=== PATIENT | female | born 1990 | race Two or more races ===

== ENCOUNTER 2018-10-19 17:37 | Observation (INO) | payer BC ==
[~2018-10-19] VITALS: Ht 175.3 cm; Wt 93.0 kg
[2018-10-19] MEDS ORDERED: PNV1TABL76 MT (19:09)
[2018-10-19] MEDS ORDERED: LACTATED RINGERS 1,000 ML IV SCH (19:11)
[2018-10-19 20:05] LABS: CLARITY URINE CLEAR (CLEAR); COLOR URINE YELLOW (YELLOW); KETONES URINE TRACE (NEGATIVE); LEUKOCYTE ESTERASE URINE NEGATIVE (NEGATIVE); NITRITE URINE NEGATIVE (NEGATIVE); OCCULT BLOOD URINE NEGATIVE (NEGATIVE); PH URINE 6.5 (4.5-8.0); PROTEIN URINE NEGATIVE (NEGATIVE); SPECIFIC GRAVITY URINE 1.032 (1.005-1.030); UROBILINOGEN URINE 0.2 E.U./dL (0.2-1.0)
[2018-10-19] MEDS ORDERED: PREN1COM12 MT (20:35)
== END 2018-10-19 20:55 | disposition home or self-care (01) ==
LOC: 8EST NSY 17:37 → 8 EST LDRP 18:14
PROVIDERS: ADMIT Obstetrics & Gynecology Obstetrics; ATTEND Obstetrics & Gynecology Obstetrics
DX: O26.892 Other specified pregnancy related conditions, second trimester (principal); R10.30 Lower abdominal pain, unspecified; Z3A.28 28 weeks gestation of pregnancy
CPT/HCPCS: 81003; 99281; G0378; 96360

== ENCOUNTER 2019-04-21 11:35 | Emergency (ER) | payer SELFPAY ==
[~2019-04-21] VITALS: Ht 175.3 cm; Wt 86.0 kg
[~2019-04-21 11:35] MED LIST: PNV1TABL76 MT; PREN1COM12 MT
[2019-04-21 11:41] VITALS: BP 136/53
[2019-04-21] MEDS ORDERED: HYDROCODONE/ACETAMINOPHEN 5/325MG TABLET PO ONE (12:00)
[2019-04-21] MEDS ORDERED: LIDOCAINE HCL/EPINEPHRINE 1%-EPI 1:100,000 30 ML VIAL INFIL ONE (12:15)
[2019-04-21] MEDS ORDERED: LIDOCAINE HCL/EPINEPHRINE 1%-EPI 1:100,000 20 ML VIAL INFIL ONE (12:30)
== END 2019-04-21 14:18 | disposition home or self-care (01) ==
LOC: ER 11:35
DX: K08.89 Other specified disorders of teeth and supporting structures (principal); Z79.899 Other long term (current) drug therapy
CPT/HCPCS: 64400; 70100; 99284; J3490; 99283

== ENCOUNTER 2021-03-20 10:14 | Emergency (ER) | payer SELFPAY ==
[~2021-03-20] VITALS: Ht 170.2 cm; Wt 86.0 kg
[2021-03-20] MEDS ORDERED: IBUP-2030 MT (12:08)
[2021-03-20 12:28] VITALS: BP 112/85
== END 2021-03-20 12:29 | disposition home or self-care (01) ==
LOC: ER 10:14
DX: U07.1 COVID-19 (principal); R00.0 Tachycardia, unspecified; Z71.89 Other specified counseling
CPT/HCPCS: 71045; 87804; 99284; C9803; U0003; U0005

== ENCOUNTER 2022-02-25 21:12 | Emergency (ER) | payer OTHER, SELFPAY ==
[~2022-02-25] VITALS: Ht 175.3 cm; Wt 86.2 kg
[~2022-02-25 21:12] MED LIST changes: +IBUP-2030 MT
[2022-02-25 23:57] VITALS: BP 125/86
[2022-02-26] MEDS ORDERED: PREDNISONE 20MG TABLET PO ONE (03:00)
[2022-02-26] MEDS ORDERED: ALBUTEROL (0.083%) 2.5MG/3ML NEB HHN ONE (03:00)
[2022-02-26] MEDS ORDERED: ALBU18HF2 IH (03:28)
[2022-02-26] MEDS ORDERED: P50 MT (03:28)
[2022-02-26] MEDS ORDERED: ACET-2708 MT (03:28)
== END 2022-02-26 04:48 | disposition home or self-care (01) ==
LOC: ER 21:12
DX: B34.9 Viral infection, unspecified (principal); Z20.822 Contact with and (suspected) exposure to COVID-19; Z88.8 Allergy status to other drugs, medicaments and biological substances
CPT/HCPCS: 71045; 81025; 87420; 87426; 87804; 94640; 99284; J7512; Z7610

== ENCOUNTER 2022-08-01 16:52 | Emergency (ER) | payer OTHER ==
[~2022-08-01] VITALS: Ht 170.2 cm; Wt 81.6 kg
[~2022-08-01 16:52] MED LIST changes: +ACET-2708 MT; +ALBU18HF2 IH; +P50 MT
[2022-08-01] MEDS ORDERED: KETOROLAC 60MG/2ML VIAL IM NR (19:45)
[2022-08-01] MEDS ORDERED: DIAZEPAM 5 MG TABLET PO ONE (19:45)
[2022-08-01] MEDS ORDERED: KETOROLAC 60MG/2ML VIAL IM ONE (19:45)
[2022-08-01] MEDS ORDERED: METOCLOPRAMIDE HCL 10MG TABLET PO NR (19:45)
[2022-08-01] MEDS ORDERED: METOCLOPRAMIDE HCL 10MG TABLET PO ONE (19:45)
[2022-08-01] MEDS ORDERED: DIAZEPAM 5 MG TABLET PO NR (19:45)
[2022-08-01 20:00] VITALS: BP 136/83
[2022-08-01] MEDS ORDERED: NAPR500T7 MT (22:19)
== END 2022-08-01 22:50 | disposition home or self-care (01) ==
LOC: ER 16:52
DX: R51.9 Headache, unspecified (principal); M54.2 Cervicalgia
CPT/HCPCS: 70450; 81025; 96372; 99285; J1885; J8597; Z7610